=== PATIENT | female | born 1965 | race Caucasian/White ===

== ENCOUNTER 2018-08-12 14:02 | Emergency (ER) | payer MEDICARE, MEDICAID ==
[~2018-08-12] VITALS: Ht 165.1 cm; Wt 78.0 kg
[2018-08-12] MEDS ORDERED: IBUPROFEN 800MG TABLET PO ONE (18:15)
[2018-08-12 20:13] VITALS: BP 93/37
== END 2018-08-12 20:12 | disposition home or self-care (01) ==
LOC: ER 14:02
DX: S20.219A Contusion of unspecified front wall of thorax, initial encounter (principal); S10.93XA Contusion of unspecified part of neck, initial encounter; F41.9 Anxiety disorder, unspecified; F32.9 Major depressive disorder, single episode, unspecified; V43.52XA Car driver injured in collision with other type car in traffic accident, initial encounter; Y93.89 Activity, other specified; Y92.410 Unspecified street and highway as the place of occurrence of the external cause; Z90.49 Acquired absence of other specified parts of digestive tract; Z98.84 Bariatric surgery status
CPT/HCPCS: 71045; 81025; 99283